=== PATIENT | female | born 1960 | race Caucasian/White ===

== ENCOUNTER 2016-12-16 08:27 | Observation (INO) | payer BC, OTHER ==
[~2016-12-16] VITALS: Ht 167.6 cm; Wt 103.5 kg
--- NOTE | ~2016-12-16 | CST ---
Cardiac Perfusion Imaging Demographics Patient Name DANCER BRANDI QUINONES Gender Female Patient Number [id number] Race Visit Number [id number] Ethnicity Corporate ID Room Number 407 Accession Number [id number] Height 66 inches Date of 1960 Weight 228 pounds Age 56 year(s) BSA 2.11 m Referring Physician Kriss Garcia MD BMI 36.8 kg/m Counts Include 234 [facility] At [facility] Date of study 12/17/2016 Physician Radiology Donald Wells MD Supervising MD/MLP Taran Evans MD [place] Technologist Efraín Noble, [facility] Ordering Physician Kriss Garcia MD Stress Em Kristen rf technician Stress ECG Reading Taran Evans MD Nurse Joyner Erica Physician Esteban Kevin The procedure was explained in detail to the patient. Risks, complications and alternative treatments were reviewed. Written consent was obtained. Medications Reviewed with Patient prior to Procedure. Procedure Procedure Type: Nuclear Stress Test:Pharmacological, Lexiscan Procedure Start time: 12/17/2016 08:00 Indications: Chest pain, Hypertension and Family history of coronary artery disease. Risk Factors The patient risk factors include:treated hypertension and family history of premature CAD. Conclusions Summary Perfusion Images: The overall quality of the study is good. Left ventricular cavity is noted to be normal on the stress and rest studies. There is no evidence of abnormal lung activity. The right ventricle is not visualized and cannot be assessed. Stress SPECT images demonstrate homogenous tracer distribution throughout the myocardium. Rest SPECT images demonstrate homogenous tracer distribution throughout the myocardium. Gated SPECT imaging reveals normal myocardial thickening and wall motion. The left ventricular ejection fraction was calculated to be 84%. Impression 1. Normal myocardial perfusion. 2. Normal left ventricular systolic function with an ejection fraction of 84 %. Stress Protocols Resting ECG Normal sinus rhythm. Resting HR:77 bpm Resting BP:125/75 mmHg Stress Protocol:Pharmacologic - Lexiscan Predicted HR: 166 bpm Test duration: 06:00 min Reason for termination:Infusion complete ECG Findings Normal sinus rhythm. Symptoms No symptoms with Lexiscan infusion. dry cough Complications Procedure complication: None. Stress Interpretation Appropriate hemodynamic response to Lexiscan. No significant ST-T wave changes with Lexiscan. ECG portion is negative for ischemia by diagnostic criteria. Imaging Results Summed scores - Summed stress score: 0 - Summed rest score: 0 - Summed difference score: 0 Stress ejection Ejection fraction:85 % EDV :59 ml ESV :9 ml Stroke volume :50 ml LV mass :99 gr Imaging Protocols Rest Stress Isotope:Tc99m Myoview IV Isotope: Tc99m Myoview IV Isotope dose:10.5 mCi Isotope dose:30.5 mCi Date:12/17/2016 06:35 Date:12/17/2016 08:00 Technique: SPECT Technique: Gated Supine SPECT Supine IV remains in place after procedure. Scan Time:30 minutes post injection Scan Time:15-30 minutes post injection Procedure Medications - Regadenoson (Lexiscan) 0.4 mg IV over 10-15 sec. I.V. 0.4 mg. Medications administered per verbal order and read back to physician prior to administration. Medical History Admission Data Admission date: 12/16/2016 Admission Time: 09:55 Hospital Status: Inpatient. Signatures
--- NOTE | 2016-12-17 06:22 | ER ---
ADMIT: 12/16/2016 RM/LOC: 407 [facility] MR#: [id number] [address] [facility] [address] [place], [place] [address] BRANDI SONI [address] [address] Emergency Room Report SEX: F AGE: 56 : 1960 DATE: 12/16/2016 TIME: 0827 hours. Please refer to my T-sheet for complete H and P. HISTORY OF PRESENT ILLNESS: Briefly, the patient is a 56-year-old, comes in with chest pain, episodes started this morning about 2 hours ago and resolved, then it started again about 0800 hours at work, substernal went to her shoulders. She has been feeling weak and no energy recently. She comes in for evaluation. PHYSICAL EXAMINATION: VITAL SIGNS: Her blood pressure 124/79, pulse 72, respirations 18, temp 97.6, and 100%. GENERAL: No acute distress. HEENT: Grossly normal. LUNGS: Clear. HEART: Regular. ABDOMEN: Soft. SKIN: No rash. EMERGENCY DEPARTMENT COURSE: Chest x-ray showed no acute disease. EKG was sinus rhythm, rate 71, no changes. CBC normal except hemoglobin of 11.7. Chemistries normal except creatinine of 2.6. Cardiac enzymes negative. She was stable. I gave her aspirin. I talked to Dr. Monterroso who is filling station attendant, he will admit to the hospital. ASSESSMENT: 1. Atypical chest pain. 2. Chronic renal insufficiency. 3. Weakness. PLAN: Admit to the hospital. Lee Valencia MD/ kory JOB #: [id number] CC: Marito Monterroso DO, Attending Physician Marito Monterroso DO, Family Physician
[2016-12-18] MEDS ORDERED: WOMEN'S MULTI200 MCG PO (10:44)
[2016-12-18] MEDS ORDERED: VITAMIN D-32000 UNI1 PO (10:45)
[2016-12-18] MEDS ORDERED: TURMERIC500 MG PO (10:45)
[2016-12-18] MEDS ORDERED: OSPHENA60 MG PO (10:46)
[2016-12-18] MEDS ORDERED: NORVASC DPS10 MG PO (10:46)
[2016-12-18] MEDS ORDERED: ZYLOPRIM-DPS300 MG PO (10:46)
[2016-12-18] MEDS ORDERED: LASIX DPS40 MG PO (10:46)
[2016-12-18] MEDS ORDERED: ZYRTEC DPS10 MG PO (10:46)
[2016-12-18] MEDS ORDERED: ROBITUSSIN AC D30 ML PO (10:47)
[2016-12-18] MEDS ORDERED: TESSALON PERLE100 M1 PO (10:47)
[2016-12-18] MEDS ORDERED: OMEPRAZOLE40 MG PO (10:47)
[2016-12-18] MEDS ORDERED: ROCALTROL DP0.25 MCG PO (10:47)
--- NOTE | 2016-12-21 08:47 | CO ---
ADMIT: 12/16/2016 RM/LOC: 407 [facility] MR#: [id number] [id number] [place], [place] [address] BRANDI SONI [address] [address] Consultation SEX: F AGE: 56 : 1960 DATE OF CONSULTATION: 12/17/2016 ATTENDING PHYSICIAN: Marito Monterroso CONSULTING PHYSICIAN: Barry Montenegro MD REASON FOR CONSULTATION: Acute kidney injury and chronic kidney disease stage 4. HISTORY OF PRESENT ILLNESS: The patient is a 56-year-old female, who is known to me from my clinic. She has a history of chronic kidney disease stage 3 that has been thought secondary to vesicoureteral reflux/reflux nephropathy with a worsening in her kidney function secondary to NSAID/Chavira-2 inhibitors. She has been struggling with an upper respiratory tract infection for quite a while now. She notes that she has had almost 3 rounds of antibiotics and steroids. She started having a cough again a few days ago. Appetite has not been great. She denies any fevers at home. She was prescribed an antibiotic again i.e., Augmentin. Yesterday, she had sharp substernal chest pain that was radiating to the left side. She had another episode of chest pain after she went to work and she was brought to the emergency room by her . She was subsequently admitted for further workup. She had a CT scan of the chest that was negative. She had a Lexiscan done this morning as well. At the time of this encounter, she feels fair. She continues to have a cough. This is a nonproductive cough. Chest pain has resolved. She denies any other complaints. REVIEW OF SYSTEMS: A complete review of systems is negative in detail except as mentioned in history of present illness above. PAST MEDICAL HISTORY: 1. Vesicoureteral reflux. 2. Morbid obesity. 3. Waldo-en-Y gastric bypass. 4. Hypertension. 5. Chronic kidney disease stage 3/4. 6. Renal osteodystrophy - vitamin D deficiency and secondary hyperparathyroidism. ALLERGIES: NO KNOWN DRUG ALLERGIES. MEDICATIONS: Reviewed and addressed in the chart. SOCIAL HISTORY: She lives at home with her . No tobacco, alcohol, or recreational drug use. FAMILY HISTORY: No family history of chronic kidney disease or renal replacement therapy. Father had type 2 diabetes mellitus. ADMIT: 12/16/2016 RM/LOC: 407 [facility] MR#: [id number] [address] [address] DANCERBRANDI [address] [place] [address] Consultation SEX: F AGE: 56 : 1960 PHYSICAL EXAMINATION: VITAL SIGNS: Temperature 98.9 Fahrenheit, pulse 71, blood pressure 101/60, saturating 93% on room air. GENERAL: She is comfortable. HEENT: Head is nontraumatic and normocephalic. Extraocular movements intact. No conjunctival pallor. Oral mucosa moist. CHEST: Clear to auscultation. CVS: Regular rhythm. S1 and S2. No rubs, murmurs, or gallops. ABDOMEN: Soft, obese. EXTREMITIES: No edema. SKIN: No rash or nodules. NEUROLOGIC: Alert, awake, and oriented x3. Able to move all extremities. PSYCHIATRIC: Affect and memory are within normal limits. MUSCULOSKELETAL: Major joints within normal limits. Range of motion within normal limits. LABORATORY DATA: Reviewed. BMP with sodium 142, potassium 3.7, creatinine 2.3 it was 2.[address] scan of the lungs was negative. ASSESSMENT/PLAN: 1. Acute kidney injury on chronic kidney disease stage 3/4 - this is most likely prerenal in etiology. I will check urine studies to evaluate further. I would suggest holding diuretics and renin-angiotensin blockade for the time being and continue hydration. I will monitor her kidney function closely. 2. Hypertension - blood pressure is currently acceptable and she appears volume deplete on exam. Hold her diuretics and renin-angiotensin blockade as noted above. 3. Renal osteodystrophy - continue vitamin D 2000 units twice a day and calcitriol 0.5 mcg daily. Thank you for this consultation and allowing me the opportunity to participate in this patient's care. Please do not hesitate to contact me any questions. Barry Montenegro MD/ kory JOB #: [id number] CC: Marito Monterroso, Attending Physician Marito Monterroso, Family Physician
== END 2016-12-17 16:35 | disposition home or self-care (01) ==
LOC: ER 08:27 → 4PCU 09:55
PROVIDERS: ADMIT Internal Medicine
DX: I12.9 Hypertensive chronic kidney disease with stage 1 through stage 4 chronic kidney disease, or unspecified chronic kidney disease (principal); N18.4 Chronic kidney disease, stage 4 (severe); N17.9 Acute kidney failure, unspecified; Q65.89 Other specified congenital deformities of hip; E66.01 Morbid (severe) obesity due to excess calories; N25.0 Renal osteodystrophy; M10.9 Gout, unspecified; Z98.84 Bariatric surgery status

== ENCOUNTER 2016-12-18 04:55 | Emergency (ER) | payer BC, OTHER ==
[2016-12-18] MEDS ORDERED: WOMEN'S MULTI200 MCG PO (10:44)
[2016-12-18] MEDS ORDERED: TURMERIC500 MG PO (10:45)
[2016-12-18] MEDS ORDERED: VITAMIN D-32000 UNI1 PO (10:45)
[2016-12-18] MEDS ORDERED: ZYLOPRIM-DPS300 MG PO (10:46)
[2016-12-18] MEDS ORDERED: ZYRTEC DPS10 MG PO (10:46)
[2016-12-18] MEDS ORDERED: NORVASC DPS10 MG PO (10:46)
[2016-12-18] MEDS ORDERED: LASIX DPS40 MG PO (10:46)
[2016-12-18] MEDS ORDERED: OSPHENA60 MG PO (10:46)
[2016-12-18] MEDS ORDERED: ROCALTROL DP0.25 MCG PO (10:47)
[2016-12-18] MEDS ORDERED: TESSALON PERLE100 M1 PO (10:47)
[2016-12-18] MEDS ORDERED: ROBITUSSIN AC D30 ML PO (10:47)
[2016-12-18] MEDS ORDERED: OMEPRAZOLE40 MG PO (10:47)
--- NOTE | 2016-12-18 19:08 | ER ---
ADMIT: 12/18/2016 RM/LOC: ER [facility] MR#: [id number] [address] [facility] [address] [place], [place] [address] BRANDI SONI [address] [address] Emergency Room Report SEX: F AGE: 56 : 1960 DATE: 12/18/2016 HISTORY OF PRESENT ILLNESS: The patient is a 56-year-old female with past medical history of hypertension, chronic kidney disease, gastric bypass, and multiple episodes of coughing, for which she has been getting different treatment for the last few months and also multiple episodes of chest pain, for which in the hospital she was recently, yesterday was discharged and had complete cardiac workup, Lexiscan which was all negative. The patient states she has the same chest pain and came back to the ER. The patient also complains of episodic heartburn and sometimes acid taste in the mouth. Per patient, chest pain happened after coughing a lot and was a little bit pleuritic in nature. The pain is not exertional. PHYSICAL EXAMINATION: VITAL SIGNS: The patient had stable vitals. LUNGS: Bilateral equal breath sounds. HEART: Normal S1, S2 cardiac sounds. ABDOMEN: Soft and nontender and no guarding and no rebound. The rest of the physical exam is noncontributory. IMAGING: Chest x-ray did not show any pneumothorax or other abnormalities. ASSESSMENT AND PLAN: The patient received GI cocktail, and states that it feels better and right now she thinks that she can go home, have some rest. The patient is mostly symptom-free at the moment and in no distress. The patient is stable to be discharged to home and follow up with the primary care doctor as needed. The patient agreed with the plan. The patient was informed that she is more than welcome to come back if there is any symptoms bothering her or if there are any concerns. Radha Brown MD/ kory JOB #: [id number] CC: Radha Brown MD, Attending Physician Greg Hammer MD, Family Physician
== END 2016-12-18 05:45 | disposition home or self-care (01) ==
LOC: ER 04:55
DX: R07.9 Chest pain, unspecified (principal); I10 Essential (primary) hypertension